=== PATIENT | female | born 1985 | race Caucasian/White ===

== ENCOUNTER → 2019-07-28 11:57 | Outpatient (BNVA) | payer SELFPAY | PROVIDERS: Family Provider Internal Medicine; Visit Provider Nurse Practitioner Family | DX: N39.0 Urinary tract infection, site not specified (principal) | CPT/HCPCS: 81003 ==

== ENCOUNTER → 2020-08-08 10:50 | Outpatient (BNVA) | payer SELFPAY | PROVIDERS: Family Provider Internal Medicine | DX: R82.90 Unspecified abnormal findings in urine (principal); R11.0 Nausea; K52.9 Noninfective gastroenteritis and colitis, unspecified; N39.0 Urinary tract infection, site not specified; R31.9 Hematuria, unspecified | CPT/HCPCS: 81000 ==